=== PATIENT | male | born 1995 | race African-American/Black ===

== ENCOUNTER 2017-08-12 20:04 | Emergency (ER) | payer MEDICAID, SELFPAY ==
[2017-08-12] MEDS ORDERED: Acetaminophen 500 MG TAB ONE (20:21)
--- NOTE | 2017-08-12 21:26 | CT ---
CT BRAIN WITHOUT CONTRAST: HISTORY: Injury. Fall. COMPARISON: None. FINDINGS: No acute territorial infarct or hemorrhage. No midline shift or mass effect. The ventricular size a nd extraaxial CSF spaces are normal. The calvarium is intact. No fracture. The paranasal sinuses and mastoids are clear. IMPRESSION: No acute intracranial abnormality. POS: [facility]
== END 2017-08-12 20:50 | disposition home or self-care (01) ==
LOC: NAV ERS 20:04
DX: S09.90XA Unspecified injury of head, initial encounter (principal); F17.210 Nicotine dependence, cigarettes, uncomplicated; Z71.6 Tobacco abuse counseling; W19.XXXA Unspecified fall, initial encounter; Y93.67 Activity, basketball
CPT/HCPCS: 70450; 99406

== ENCOUNTER 2020-03-23 22:27 | Emergency (ER) | payer SELFPAY ==
[2020-03-23 22:58] LABS: Bilirubin Negative (Negative); Blood, Urine Negative (Negative); Clarity Clear (Clear); Glucose, Urine (Dipstick) Negative (Negative); Ketone, Urine Negative (Negative); Leukocyte Negative (Negative); Nitrite Negative (Negative); Protein, Urine (Dipstick) Negative (Neg-Trace); Urobilinogen 0.2 mg/dL (Less than 2); pH, Urine 6.5 (5.0-9.0)
[2020-03-23 22:59] LABS: Specific Gravity, Urine 1.002 (1.002-1.036)
[2020-03-23 23:00] LABS: Amphetamine Not Detected (NotDetected); Barbiturates Screen Not Detected (NotDetected); Benzodiazepine Screen Not Detected (NotDetected); Cocaine Metabolite Screen Not Detected (NotDetected); Methadone Not Detected (NotDetected); Methamphetamine Not Detected (NotDetected); Opiate Screen Not Detected (NotDetected); Oxycodone Screen Not Detected (NotDetected); Phencyclidine (PCP) Not Detected (NotDetected); THC/Cannabinoid Screen Not Detected (NotDetected); Tricyclic Screen Not Detected (NotDetected)
[2020-03-23 23:01] LABS: Medtox Control Line Valid? VALID (VALID)
[2020-03-23 23:05] LABS: INR-International Normal Ratio 1.2; PTT 29.1 sec (22.9-36.1)
[2020-03-23 23:06] LABS: #Basophils 0.1 thou/uL (0.0-0.2); #Eosinphils 0.1 thou/uL (0.0-0.7); #Lymphocytes 2.5 thou/uL (1.20-3.40); #Monocytes 0.7 thou/uL (0.11-0.59); %Eosinophils 0.8 % (0.0-10.0); %Lymphocytes 24.1 % (21.0-51.0); %Monocytes 6.3 % (0.0-10.0); %Neutrophils 67.8 % (42.0-75.0); Hemoglobin 15.3 g/dL (14.0-18.0); Mean Corpuscular HGB CONC 34.4 g/dL (32.0-36.0); Mean Corpuscular Hemoglobin 31.5 pg (27.0-31.0); Mean Corpuscular Volume 91.7 fL (78.0-98.0); Mean Platelet Volume 9.1 fL (7.4-10.4); Platelet Count 283 thou/uL (130-400); RBC Distribution Width 10.3 % (11.5-14.5); Red Blood Cell (RBC) Count 4.84 mill/uL (4.70-6.10); White Blood Cell (WBC) Count 10.3 thou/uL (4.8-10.8)
--- NOTE | 2020-03-23 23:10 | CT ---
EXAM: CT brain without contrast HISTORY: Head trauma COMPARISON: 08/12/2017 TECHNIQUE: Multiple contiguous axial images were obtained and a CT of the brain without contrast. Sag ittal and coronal reformats were performed. FINDINGS: The brain is normal in morphology and attenuation without focal lesions or confluent areas of infarction. There is no evidence of hydrocephalus, intracranial hemorrhage, or extra-axial fluid collection. The calvarium and overlying soft tissues are unremarkable. The visualized paranasal sinuses and masto id air cells are well aerated. IMPRESSION: No evidence of acute intracranial abnormality
[2020-03-23 23:12] LABS: ALT (SGPT) 15 U/L (8-55); AST (SGOT) 16 U/L (5-34); Albumin 4.8 g/dL (3.5-5.0); Alcohol 123 mg/dL (Less than 10); Alkaline Phosphatase 58 U/L (40-110); Anion Gap 15 mmol/L (10-20); BUN (Urea Nitrogen) 9 mg/dL (8.9-20.6); Bilirubin, Total 0.6 mg/dL (0.2-1.2); Calc. Creatinine Clearance 0 mL/min (70-130); Carbon Dioxide 24 mmol/L (22-29); Chloride 109 mmol/L (98-107); Globulin 3.2 g/dL (2.4-3.5); Glucose 83 mg/dL (70-105); Lipase 14 U/L (8-78); Potassium 3.7 mmol/L (3.5-5.1); Salicylate Less than 8.0 mg/dL (15.0-30.0); Sodium 144 mmol/L (136-145)
--- NOTE | 2020-03-23 23:12 | CT ---
EXAM: CT of the cervical spine without contrast HISTORY: Head trauma and neck pain COMPARISON: None TECHNIQUE: Multiple contiguous axial images were obtained in a CT of the cervical spine without contr ast. Sagittal and coronal reformats were performed. FINDINGS: The vertebral bodies and intervertebral discs demonstrate normal height and alignment witho ut fracture or subluxation. No degenerative changes are present. No prevertebral soft tissue swelling is seen. The posterior facets are well aligned. Normal alignment of the skull base with the cervical spine is seen. The lung apices and cervical soft tissues are unremarkable. IMPRESSION: No evidence of acute osseous abnormality of the cervical spine.
[2020-03-23 23:14] LABS: Acetaminophen Less than 10.0 mcg/mL (10.0-30.0)
== END 2020-03-23 23:57 ==
LOC: NAV ERS 22:27
DX: S80.812A Abrasion, left lower leg, initial encounter (principal); F10.129 Alcohol abuse with intoxication, unspecified; R45.851 Suicidal ideations; F17.210 Nicotine dependence, cigarettes, uncomplicated; V89.2XXA Person injured in unspecified motor-vehicle accident, traffic, initial encounter
CPT/HCPCS: 36415; 70450; 72125; 80053; 80306; 80307; 81003; 83690; 84443; 85025; 85610; 85730; 94760

== ENCOUNTER 2020-08-08 20:01 | Emergency (ER) | payer SELFPAY ==
[2020-08-09 15:31] LABS: SARS-CoV-2 PCR by NAA Not Detected (NotDetected)
== END 2020-08-08 20:40 | disposition home or self-care (01) ==
LOC: NAV ERS 20:01
DX: B34.9 Viral infection, unspecified (principal); Z20.822 Contact with and (suspected) exposure to COVID-19; Z87.891 Personal history of nicotine dependence
CPT/HCPCS: 87635; 99283; U0003; U0005

== ENCOUNTER 2020-12-09 10:15 | Emergency (ER) | payer OTHER, SELFPAY ==
[2020-12-09] MEDS ORDERED: Azithromycin 500 MG VIAL ONE (10:59)
[2020-12-09] MEDS ORDERED: cefTRIAXone\\ROCEPHIN 250 MG VIAL ONE ×2 (10:59→11:00)
[2020-12-09] MEDS ORDERED: Azithromycin 250 MG TAB ONE (10:59)
[2020-12-09 11:10] LABS: Bilirubin Negative (Negative); Blood, Urine Trace (Negative); Clarity Cloudy (Clear); Glucose, Urine (Dipstick) Negative (Negative); Ketone, Urine Negative (Negative); Leukocyte Moderate (Negative); Nitrite Negative (Negative); Protein, Urine (Dipstick) Trace mg/dL (Neg-Trace); Urobilinogen 0.2 mg/dL (Less than 2); pH, Urine 5.5 (5.0-9.0)
[2020-12-09 11:11] LABS: Specific Gravity, Urine 1.028 (1.002-1.036)
[2020-12-09 11:18] LABS: Bacteria/HPF Rare-Few HPF (None Seen); RBC/HPF None Seen HPF (0-3); Squamous Epithelial 0-3 HPF (0-3); WBC/HPF 21-50 HPF (0-3)
[2020-12-09 21:18] LABS: Chlam.trachomatis by PCR,Urine DETECTED (NotDetected)
== END 2020-12-09 11:10 | disposition home or self-care (01) ==
LOC: NAV ERS 10:15
DX: R36.9 Urethral discharge, unspecified (principal)
CPT/HCPCS: 81003; 81015; 87491; 87591; 96372; 99283; J0456; J0696